=== PATIENT | male | born 1930 | race Caucasian/White ===

== ENCOUNTER 2017-09-10 10:53 | Inpatient (IN) | payer MEDICARE, OTHER ==
[~2017-09-10] VITALS: Ht 172.7 cm; Wt 63.0 kg
[2017-09-10 11:50] LABS: Hematocrit 44.2 % (41.0-53.0); Hemoglobin 14.5 g/dL (13.5-17.5); Mean Corpuscular Hemoglobin 27.9 pg (28.0-32.0); Mean Corpuscular Hgb Conc. 32.7 g/dL (32.0-36.0); Mean Corpuscular Volume 85.3 fL (80.0-100.0); Platelet Count (auto) 229 10^3/uL (140-450); Red Blood Cells 5.18 10^6/uL (4.5-5.90); Red Cell Distribution Width 15.4 % (11.8-14.3); White Blood Cell 16.2 10^3/uL (4.4-10.8)
[2017-09-10 12:01] LABS: Basophils % (manual) 0 (0.0-2.0); Eosinophils % (manual) 0 (0-7)
[2017-09-10 12:02] LABS: Blast Cells 0; Metamyelocytes % 0; Promyelocytes % 0; Reactive Lymphocytes 0
[2017-09-10 12:12] LABS: BUN/Creatinine Ratio 14.8; Bilirubin, Total 0.7 mg/dL (0.2-1.0); Calcium 8.9 mg/dL (8.5-10.1); Potassium 4.2 mmol/L (3.5-5.1); Total Protein 8.3 g/dL (6.4-8.2)
[2017-09-10 13:55] LABS: Band Neutrophils % (manual) 3; Lymphocytes % (manual) 5 (10.0-50.0); Monocytes % (manual) 4 (0-12); Myelocytes % 1
[2017-09-10 14:09] LABS: Urine Bacteria FEW /hpf (None Seen); Urine Blood 2+ /uL (Negative); Urine Mucus FEW (None Seen); Urine WBC 19 /hpf (0 - 3)
[2017-09-10] MEDS ORDERED: cefTRIAXone 1GM/10ml IVPUSH 10 ML IV ONE (15:45)
[2017-09-10] MEDS ORDERED: HYDROcodone-ACET 5/325MG TAB PO PRN (16:00)
[2017-09-10] MEDS ORDERED: MORPHINE SULFATE 4 MG/ML SYR/VIAL IV PRN ×2 (16:00)
[2017-09-10] MEDS ORDERED: LORazepam 0.5 MG TAB PO PRN (16:00)
[2017-09-10] MEDS ORDERED: TEMAZEPAM 15 MG CAP PO PRN (16:00)
[2017-09-10] MEDS ORDERED: ACETAMINOPHEN 500 MG TAB PO PRN (16:00)
[2017-09-10] MEDS ORDERED: NITROGLYCERIN 0.4 MG SL TAB SL PRN (16:00)
[2017-09-10] MEDS ORDERED: PIPERACILLIN-TAZOB 3.375GM 50 ML IV ONE (16:00)
[2017-09-10] MEDS ORDERED: PROMETHAZINE HCL 25 MG/ML 1ML IV PRN (16:00)
[2017-09-10] MEDS: FAMOTIDINE (10MG/ML) 2ML VL IV SCH (16:30)
[2017-09-10] MEDS: SODIUM CHLORIDE 0.9% 1,000 ML IV SCH (17:58)
[2017-09-10] MEDS: CARVEDILOL 3.125 MG TAB PO SCH (21:46)
[2017-09-10 22:00] VITALS: BP 126/74
[2017-09-10] MEDS: PIPERACILLIN-TAZOB 3.375GM 50 ML IV SCH (23:52)
[2017-09-11] MEDS: SODIUM CHLORIDE 0.9% 1,000 ML IV SCH ×3 (01:49→22:00)
[2017-09-11 05:00] VITALS: BP 113/69
[2017-09-11] MEDS ORDERED: PIPERACILLIN-TAZOB 3.375GM 50 ML IV ONE (05:47)
[2017-09-11] MEDS: PIPERACILLIN-TAZOB 3.375GM 50 ML IV SCH ×3 (05:53→18:26)
[2017-09-11 07:12] LABS: Basophils # (auto) 0 uL; Basophils % (auto) 0.4 % (0.0-2.0); Eosinophils # (auto) 0.5 uL; Eosinophils % (auto) 4.5 % (0.0-7.0); Hematocrit 37.6 % (41.0-53.0); Hemoglobin 12.6 g/dL (13.5-17.5); Lymphocytes # (auto) 0.6 uL; Mean Corpuscular Hemoglobin 28.7 pg (28.0-32.0); Mean Corpuscular Hgb Conc. 33.6 g/dL (32.0-36.0); Mean Corpuscular Volume 85.3 fL (80.0-100.0); Monocytes # (auto) 0.7 uL; Monocytes % (auto) 5.5 % (0.0-12.0); Neutrophils # (auto) 10.1 uL; Neutrophils % (auto) 84.6 % (37.0-80.0); Platelet Count (auto) 189 10^3/uL (140-450); Red Blood Cells 4.41 10^6/uL (4.5-5.90); Red Cell Distribution Width 15.4 % (11.8-14.3); White Blood Cell 11.9 10^3/uL (4.4-10.8)
[2017-09-11 07:45] LABS: Albumin 2.4 g/dL (3.4-5.0); BUN/Creatinine Ratio 15.1; Bilirubin, Total 0.7 mg/dL (0.2-1.0); Potassium 4.2 mmol/L (3.5-5.1); Total Protein 7.1 g/dL (6.4-8.2)
[2017-09-11 09:00] VITALS: BP 108/65
[2017-09-11] MEDS ORDERED: NITROGLYCERIN 0.2MG/HR TOPICAL PATCH TD SCH (10:00)
[2017-09-11] MEDS: ASPirin 81 mg TAB PO SCH (10:42)
[2017-09-11] MEDS: FAMOTIDINE (10MG/ML) 2ML VL IV SCH (10:42)
[2017-09-11] MEDS: CARVEDILOL 3.125 MG TAB PO SCH ×2 (10:43→21:48)
[2017-09-11 12:31] VITALS: BP 89/52
[2017-09-11] MEDS ORDERED: DOXYCYCLINE HYC 100MG/250ML 250 ML IV ONE (13:45)
[2017-09-11] MEDS: DOXYCYCLINE HYC 100MG/250ML 250 ML IV SCH (15:46)
[2017-09-11 17:18] VITALS: BP 123/71
[2017-09-11] MEDS: ATORVASTATIN 20 MG TAB PO SCH (21:48)
[2017-09-12] MEDS: PIPERACILLIN-TAZOB 3.375GM 50 ML IV SCH ×5 (00:33→22:32)
[2017-09-12] MEDS: DOXYCYCLINE HYC 100MG/250ML 250 ML IV SCH (01:48)
[2017-09-12 05:00] VITALS: BP 96/58
[2017-09-12 06:43] LABS: Basophils # (auto) 0 uL; Basophils % (auto) 0.4 % (0.0-2.0); Eosinophils # (auto) 0.6 uL; Hematocrit 34.5 % (41.0-53.0); Hemoglobin 11.6 g/dL (13.5-17.5); Lymphocytes % (auto) 14.3 % (10.0-50.0); Mean Corpuscular Hemoglobin 28.7 pg (28.0-32.0); Mean Corpuscular Hgb Conc. 33.6 g/dL (32.0-36.0); Mean Corpuscular Volume 85.5 fL (80.0-100.0); Monocytes # (auto) 0.7 uL; Monocytes % (auto) 9.7 % (0.0-12.0); Neutrophils # (auto) 4.9 uL; Neutrophils % (auto) 67.6 % (37.0-80.0); Platelet Count (auto) 191 10^3/uL (140-450); Red Blood Cells 4.03 10^6/uL (4.5-5.90); Red Cell Distribution Width 15.3 % (11.8-14.3); White Blood Cell 7.2 10^3/uL (4.4-10.8)
[2017-09-12 07:05] LABS: Calcium 8.1 mg/dL (8.5-10.1)
[2017-09-12] MEDS: SODIUM CHLORIDE 0.9% 1,000 ML IV SCH ×2 (07:49→14:46)
[2017-09-12 08:30] VITALS: BP 102/61
[2017-09-12 09:00] VITALS: BP 102/61
[2017-09-12] MEDS: FAMOTIDINE (10MG/ML) 2ML VL IV SCH (10:44)
[2017-09-12] MEDS: ASPirin 81 mg TAB PO SCH (10:44)
[2017-09-12] MEDS: CARVEDILOL 3.125 MG TAB PO SCH ×2 (10:44→22:34)
[2017-09-12] MEDS ORDERED: VANCOMYCIN PER PHARMACY 0 MG IV SCH (11:30)
[2017-09-12 13:00] VITALS: BP 118/65
[2017-09-12] MEDS: VANCOMYCIN 1GM/250ML 250 ML IV SCH (16:00)
[2017-09-12 16:46] VITALS: BP 120/65
[2017-09-12 22:00] VITALS: BP 139/79
[2017-09-12] MEDS: ATORVASTATIN 20 MG TAB PO SCH (22:32)
[2017-09-13 05:00] VITALS: BP 146/74
[2017-09-13] MEDS: PIPERACILLIN-TAZOB 3.375GM 50 ML IV SCH ×2 (06:53→11:36)
[2017-09-13] MEDS: SODIUM CHLORIDE 0.9% 1,000 ML IV SCH ×2 (07:25→21:49)
[2017-09-13 08:31] VITALS: BP 130/70
[2017-09-13] MEDS: FAMOTIDINE (10MG/ML) 2ML VL IV SCH (10:00)
[2017-09-13] MEDS: ASPirin 81 mg TAB PO SCH (10:25)
[2017-09-13] MEDS: CARVEDILOL 3.125 MG TAB PO SCH ×2 (10:26→21:49)
[2017-09-13 12:26] VITALS: BP 147/75
[2017-09-13] MEDS: VANCOMYCIN 1GM/250ML 250 ML IV SCH (14:57)
[2017-09-13 16:04] VITALS: BP 122/72
[2017-09-13 21:30] VITALS: BP 140/71
[2017-09-13] MEDS: ATORVASTATIN 20 MG TAB PO SCH (21:49)
[2017-09-14] VITALS (7 sets, daily range): BP systolic 135–162; BP diastolic 71–88
[2017-09-14] MEDS: CARVEDILOL 3.125 MG TAB PO SCH ×2 (09:58→22:14)
[2017-09-14] MEDS: ASPirin 81 mg TAB PO SCH (10:02)
[2017-09-14] MEDS: FAMOTIDINE (10MG/ML) 2ML VL IV SCH (10:02)
[2017-09-14] MEDS ORDERED: LIDOCAINE 1% HCL (LOCAL ANESTH.) INJ 20ML MDV ID ONE (12:15)
[2017-09-14] MEDS: SODIUM CHLORIDE 0.9% 1,000 ML IV SCH (15:54)
[2017-09-14] MEDS: VANCOMYCIN 1GM/250ML 250 ML IV SCH (15:54)
[2017-09-14 16:08] LABS: BUN/Creatinine Ratio 15.4; Calcium 7.9 mg/dL (8.5-10.1); INR 1.01 (0.9-1.15); Partial Thromboplastin Time 30.7 sec (22.64-33.71); Potassium 3.8 mmol/L (3.5-5.1)
[2017-09-14 16:45] LABS: Basophils # (auto) 0.1 uL; Basophils % (auto) 0.8 % (0.0-2.0); Eosinophils # (auto) 0.4 uL; Eosinophils % (auto) 4.8 % (0.0-7.0); Hematocrit 37.7 % (41.0-53.0); Hemoglobin 12.5 g/dL (13.5-17.5); Lymphocytes # (auto) 1.3 uL; Mean Corpuscular Hemoglobin 28.3 pg (28.0-32.0); Mean Corpuscular Hgb Conc. 33.2 g/dL (32.0-36.0); Mean Corpuscular Volume 85.3 fL (80.0-100.0); Monocytes # (auto) 0.5 uL; Monocytes % (auto) 7.3 % (0.0-12.0); Neutrophils # (auto) 5.2 uL; Neutrophils % (auto) 70.1 % (37.0-80.0); Nucleated Red Blood Cells % 0.2 %; Platelet Count (auto) 234 10^3/uL (140-450); Red Blood Cells 4.42 10^6/uL (4.5-5.90); Red Cell Distribution Width 14.9 % (11.8-14.3); White Blood Cell 7.4 10^3/uL (4.4-10.8)
[2017-09-14] MEDS: ATORVASTATIN 20 MG TAB PO SCH (22:13)
[2017-09-14] MEDS: SODIUM CHLOR 0.9% PF (SALINE LOCK) 10ML VIAL IV SCH (22:15)
[2017-09-14] MEDS: LINEZOLID 600MG/300ML 300 ML IV SCH (22:17)
[2017-09-15] MEDS ORDERED: VANCOMYCIN 1GM/250ML 250 ML IV SCH (04:00)
[2017-09-15] MEDS: SODIUM CHLORIDE 0.9% 1,000 ML IV SCH ×2 (04:21→23:25)
[2017-09-15 05:00] VITALS: BP 140/74
[2017-09-15 08:38] LABS: Eosinophils # (auto) 0.4 uL; Hematocrit 36.1 % (41.0-53.0); Hemoglobin 12.3 g/dL (13.5-17.5); Lymphocytes # (auto) 1.5 uL; Monocytes # (auto) 0.6 uL; Monocytes % (auto) 7.8 % (0.0-12.0); Red Cell Distribution Width 15.1 % (11.8-14.3)
[2017-09-15 08:40] LABS: Basophils # (auto) 0.1 uL; Basophils % (auto) 1.3 % (0.0-2.0); Eosinophils % (auto) 5.7 % (0.0-7.0); Lymphocytes % (auto) 19.2 % (10.0-50.0); Mean Corpuscular Hemoglobin 28.5 pg (28.0-32.0); Mean Corpuscular Hgb Conc. 34.1 g/dL (32.0-36.0); Mean Corpuscular Volume 83.6 fL (80.0-100.0); Nucleated Red Blood Cells % 0.2 %; Platelet Count (auto) 375 10^3/uL (140-450); Red Blood Cells 4.32 10^6/uL (4.5-5.90); White Blood Cell 7.5 10^3/uL (4.4-10.8)
[2017-09-15 09:00] VITALS: BP 162/87
[2017-09-15] MEDS: FAMOTIDINE (10MG/ML) 2ML VL IV SCH (09:30)
[2017-09-15] MEDS: CARVEDILOL 3.125 MG TAB PO SCH ×2 (09:30→23:04)
[2017-09-15] MEDS: SODIUM CHLOR 0.9% PF (SALINE LOCK) 10ML VIAL IV SCH ×2 (09:30→23:09)
[2017-09-15] MEDS: LINEZOLID 600MG/300ML 300 ML IV SCH ×2 (09:30→23:04)
[2017-09-15] MEDS: ASPirin 81 mg TAB PO SCH (09:31)
[2017-09-15] MEDS: amLODIPine BESYLATE 5 MG TAB PO SCH (10:36)
[2017-09-15] MEDS ORDERED: ASPI-231 PO (12:49)
[2017-09-15] MEDS ORDERED: AMIO200T33 PO (12:49)
[2017-09-15] MEDS ORDERED: PANT40TA2 PO (12:49)
[2017-09-15] MEDS ORDERED: MOMLQ GT (12:49)
[2017-09-15] MEDS ORDERED: DOCU100T15 PO (12:49)
[2017-09-15] MEDS ORDERED: SIMV10TA73 PO (12:49)
[2017-09-15] MEDS ORDERED: BIS10RS PR (12:49)
[2017-09-15] MEDS ORDERED: METO25TA62 PO (12:49)
[2017-09-15] MEDS ORDERED: CLOP75TA41 PO (12:49)
[2017-09-15] MEDS ORDERED: LEVA1NEB5 IN (12:49)
[2017-09-15 12:57] VITALS: BP 149/83
[2017-09-15 16:58] VITALS: BP 115/71
[2017-09-15 20:00] VITALS: BP 132/70
[2017-09-15 22:36] VITALS: BP 132/70
[2017-09-15] MEDS: ATORVASTATIN 20 MG TAB PO SCH (23:02)
[2017-09-16 05:14] VITALS: BP 116/51
[2017-09-16 08:00] VITALS: BP 119/67
[2017-09-16 09:00] VITALS: BP 119/67
[2017-09-16] MEDS: FAMOTIDINE (10MG/ML) 2ML VL IV SCH (10:55)
[2017-09-16] MEDS: SODIUM CHLOR 0.9% PF (SALINE LOCK) 10ML VIAL IV SCH (10:55)
[2017-09-16] MEDS: LINEZOLID 600MG/300ML 300 ML IV SCH (10:56)
[2017-09-16] MEDS: ASPirin 81 mg TAB PO SCH (10:56)
[2017-09-16] MEDS: CARVEDILOL 3.125 MG TAB PO SCH (10:57)
[2017-09-16] MEDS: amLODIPine BESYLATE 5 MG TAB PO SCH (10:57)
[2017-09-16 13:00] VITALS: BP 143/85
[2017-09-16 13:48] VITALS: BP 140/80
[2017-09-16 17:00] VITALS: BP 123/69
== END 2017-09-16 17:35 | DRG 698 ==
LOC: EDBD 10:53 → ER 10:53 → TELE 10:54 → TELE-WESTW 20:00 → WEST WING 09-12 00:08
PROVIDERS: ADMIT Internal Medicine; ATTEND Internal Medicine
PROC: 02HV33Z Insertion of Infusion Device into Superior Vena Cava, Percutaneous Approach (ICD-10-PCS; principal; 2017-09-14)
DX: T83.83XA Hemorrhage due to genitourinary prosthetic devices, implants and grafts, initial encounter (principal); N17.0 Acute kidney failure with tubular necrosis; E44.0 Moderate protein-calorie malnutrition; R78.81 Bacteremia; B95.62 Methicillin resistant Staphylococcus aureus infection as the cause of diseases classified elsewhere; Y73.8 Miscellaneous gastroenterology and urology devices associated with adverse incidents, not elsewhere classified; Y92.9 Unspecified place or not applicable; Y84.6 Urinary catheterization as the cause of abnormal reaction of the patient, or of later complication, without mention of misadventure at the time of the procedure; R31.0 Gross hematuria; E86.0 Dehydration; I25.2 Old myocardial infarction; I25.9 Chronic ischemic heart disease, unspecified; J44.9 Chronic obstructive pulmonary disease, unspecified; N18.3 Chronic kidney disease, stage 3 (moderate); T36.8X5A Adverse effect of other systemic antibiotics, initial encounter; H10.419 Chronic giant papillary conjunctivitis, unspecified eye; Z53.20 Procedure and treatment not carried out because of patient's decision for unspecified reasons; I12.9 Hypertensive chronic kidney disease with stage 1 through stage 4 chronic kidney disease, or unspecified chronic kidney disease; D72.829 Elevated white blood cell count, unspecified; F03.90 Unspecified dementia, unspecified severity, without behavioral disturbance, psychotic disturbance, mood disturbance, and anxiety; Y92.89 Other specified places as the place of occurrence of the external cause; Z86.73 Personal history of transient ischemic attack (TIA), and cerebral infarction without residual deficits; Z22.322 Carrier or suspected carrier of Methicillin resistant Staphylococcus aureus; Z68.21 Body mass index [BMI] 21.0-21.9, adult
CPT/HCPCS: 36415; 36569; 51702; 71045; 76775; 80048; 80053; 80202; 81001; 82550; 84484; 85007; 85025; 85027; 85610; 85730; 86850; 86900; 86901; 87040; 87077; 87081; 87086; 87088; 87186; 93005; 93306; 96374; 96375; J2543; J3490